=== PATIENT | female | born 1990 | race Caucasian/White ===

== ENCOUNTER 2017-04-05 18:09 | Emergency (ER) | payer MEDICAID ==
[~2017-04-05] VITALS: Ht 157.5 cm; Wt 114.0 kg
[~2017-04-05 18:09] MED LIST: AMOX-421 PO; FERR-43 PO
[2017-04-05 18:15] VITALS: BP 119/80
== END 2017-04-05 22:50 | disposition left against medical advice (07) ==
LOC: ER 18:30
DX: Z53.21 Procedure and treatment not carried out due to patient leaving prior to being seen by health care provider (principal)